=== PATIENT | female | born 1935 | race Caucasian/White ===

== ENCOUNTER 2017-05-09 18:15 | Observation (INO) | payer MEDICARE ==
[~2017-05-09] VITALS: Ht 162.6 cm; Wt 83.3 kg
[~2017-05-09 18:15] MED LIST: AMLO10TA3 PO; ASPI-973 PO; ATRV10T PO; CRAN500T PO; CYAN10008 PO; DOCU-41 PO; FLC50T PO; FLUT9.9S NS; HYDR-4003 PO; LEVO112T4 PO; MAGN400T4 PO; MELA1TAB11 PO; METO25TA6 PO; MULT1CAP33 PO; OMEG1CAP25 PO; RANI150C4 PO; SENN8.6C6 PO
[2017-05-09 18:19] VITALS: BP 147/79; PULSE 90; RESP 18; O2SAT 98
--- NOTE | 2017-05-09 19:01 | ED.REPORT ---
HPI-Chest Pain 40 and Over Date of Service May 09, 2017 ED Provider: Kendall Delacruz DO An 82 year old female with a history of atrial fibrillation, hypertension, hypothyroidism, pneumonia and slight aortic aneurysm presents to the ED complaining of chest pain. The pt has been experiencing chest pain intermittently for two days, which she describes as "5/10 pressure" radiating to her neck and left arm. This is accompanied by shortness of breath, though the pt denies nausea, vomiting, diaphoresis or lower extremity edema. These symptoms are exacerbated by stress and relieved by rest. The pt was sitting down today when she experienced an episode of worsening palpitations, near syncope, confusion and shortness of breath. She took one 325 mg aspirin at 18: 00 with no relief of her symptoms. The pt had an echocardiogram two weeks ago but has not yet received the results. Her last stress test was in 10/2016. She also reports similar symptoms 1.5 years ago that resulted in a stress test. Nursing Notes Stated Complaint: CHEST PAIN Chief Complaint: Chest Pain Nursing Notes Reviewed: Yes Allergies: Coded Allergies: dicyclomine (Verified Allergy, Severe, 11/02/15) meperidine HCl (Verified Allergy, Severe, N&V, 11/02/15) trazodone (Verified Allergy, Severe, 11/02/15) benazepril (Verified Allergy, Unknown, 11/02/15) gabapentin (Verified Allergy, Unknown, 11/02/15) VAUGHN Inhibitors (Verified Adverse Reaction, Severe, COUGH, 11/02/15) sumatriptan (Verified Adverse Reaction, Severe, NAUSEA,PALPITATIONS, ) Uncoded Allergies: MISC CENTRAL NERVOUS SYSTEM DRUGS (Allergy, Unknown, 09/14/04) Scheduled Amlodipine (Amlodipine) 10 Mg Tablet 10 MG PO DAILY Aspirin (Aspirin) 325 Mg Tablet 325 MG PO DAILY Atorvastatin (Lipitor) 10 Mg Tab 10 MG PO HS Cranberry Fruit (Cranberry) 500 Mg Tab.chew 500 MG PO BID Docusate Sodium (Colace) 100 Mg Capsule 200 MG PO DAILY Flecainide Acetate (Flecainide Acetate) 50 Mg Tablet 50 MG PO BID Levothyroxine (Levothyroxine) 112 Mcg Tablet 112 MCG PO DAILY Melatonin/Pyridoxine HCl (B6) (Melatonin 3 mg Tablet) 1 Each Tablet 1 EACH PO HS Metoprolol Tartrate (Metoprolol Tartrate) 25 Mg Tablet 12.5 MG PO BID Multivitamin (Multivitamins) 1 Each Capsule 1 EACH PO DAILY [place]-3 Fatty Acids/Fish Oil ([place] 3 Fish Oil Softgel) 1 Each Capsule.dr 1 EACH PO DAILY Sennosides (Senna) 8.6 Mg Tablet 17.2 MG PO HS Scheduled PRN Fluticasone Propionate (Flonase Allergy Relief) 50 Mcg/Actuation [place].susp 1 SPRAYS NS BID PRN PRN allergies Hydrocodone-Acetaminophen 5-325 mg (Hydrocodone-Acetaminophen 5-325 mg) 1 Each Tablet 0.5-1 TABLET PO TID PRN PRN For Pain Ranitidine (Ranitidine) 150 Mg Capsule 150 MG PO DAILY PRN PRN heartburn General Time Seen by MD: 19:00 Chief Complaint Chest pain Hx Obtained From: Patient Arrived By: Walk-in Sudden in Onset?: No Onset Occurred: 2 days ago Symptom Duration: Intermittent Recent Healthcare: No recent hospitalization, Recent doctor visit Similar Sx Previous: Yes Past Medical History Past Medical History Abnormal stress test results 10/14/1010/2015 stress test Slight aortic aneurysm Breast cancer Hypertension Hypothyroid Restless leg Pneumonia Hiatal hernia Heartburn Arthritis Reports: Atrial fibrillation Past Surgical History Colonoscopy 12/05/10 Left mastectomy Reports: Cholecystectomy, Hysterectomy Smoking History Never Smoker Social History Alcohol Use: Denies alcohol use Ambulatory Status Independent Review of Systems Review of Systems Note: near syncope denies lower extremity edema Respiratory: Reports: Shortness of breath, Denies: Non-productive cough Cardiovascular: Reports: Chest pain, Palpitations GI: Denies: Abdominal pain, Diarrhea, Nausea, Vomiting Musculoskeletal: Reports: Extremity pain, Neck pain, Denies: Back pain Skin: Denies Diaphoresis, Denies Rash Neurologic: Reports: Confusion Complete sys rev & neg: except as marked. Physical Exam Initial Vital Signs Vital Signs (First) Date Time Temp Pulse Resp B/P Pulse Ox O2 Delivery O2 Flow Rate FiO2 05/09/17 18:19 37.1 90 18 147/79 98 Room Air Initial VS: Reviewed General/Constitutional: Awake, Alert Respiratory / Chest: Atraumatic, Breath sounds NL, Breath sounds = bilat, No respiratory distress Cardiovascular: Heart rate NL, Regular rhythm, Heart sounds NL Abdomen: Atraumatic, Soft, Non-tender Neck: Atraumatic, Supple, Full range of motion Back: Atraumatic, Full range of motion Lower Extremity / Pelvis / MS: Atraumatic, Full range of motion Skin: Atraumatic, Color NL, No rash, Warm, Dry Neurologic: Oriented X3, Speech NL, No motor deficits, No sensory deficits Psychiatric: Affect NL, Mood NL Head / Eyes: Atraumatic, Normocephalic, PERRL, EOMI ENT: Atraumatic, Airway patent, Mucous membranes moist Upper Extremity / MS: Atraumatic, Full range of motion Interpretation & Diagnostics Lab Results Interpretation Result Diagram: 05/09/17 19005/09/17 190 Test 05/09/17 19:01 White Blood Count 5.2th/mm3 (3.8-10.1) Red Blood Count 4.51mil/mm3 (3.90-5.20) Hemoglobin 13.6g/dL (12.0-15.6) Hematocrit 40.0% (35.0-46.0) Mean Corpuscular Volume 88.7fL (81-100) Mean Corpuscular Hemoglobin 30.2pg (27.0-35.0) Mean Corpuscular Hemoglobin Concent 34.0% (32.0-37.0) Red Cell Distribution Width 13.1% (12.3-15.4) Platelet Count 219bil/L (150-400) Neutrophils (%) (Auto) 68.5% (40-74) Lymphocytes (%) (Auto) 22.5% (14-46) Monocytes (%) (Auto) 6.7% (4-12) Eosinophils (%) (Auto) 1.7% (0-5) Basophils (%) (Auto) 0.4% (0-3) D-Dimer < 0.50mg/L FEU (<0.50) Sodium Level 138mEq/L (134-144) Potassium Level 3.7mEq/L (3.5-5.2) Chloride Level 100mEq/L (97-108) Carbon Dioxide Level 22mmol/L (18-29) Blood Urea Nitrogen 18mg/dL (8-27) Creatinine 0.78mg/dL (0.57-1.00) Estimat Glomerular Filtration Rate 102mL/min (>59) Glucose Level 172mg/dL (60-99) Calcium Level 9.4mg/dL (8.5-10.1) Magnesium Level 2.3mg/dL (1.6-2.6) Total Bilirubin 0.4mg/dL (0.0-1.2) Aspartate Amino Transf (AST/SGOT) 19U/L (0-50) Alanine Aminotransferase (ALT/SGPT) 18U/L (0-32) Alkaline Phosphatase 79U/L (25-165) Total Protein 6.8g/dL (6.4-8.4) Albumin 4.2g/dL (3.4-5.0) Hold [place] Top Tube Received (Received) Pulse Oximetry Interpretation Pulse Oximetry Interpretation: 98% on room air Pulse Oximetry: Pulse Ox normal ECG Interpretation ECG Interpretation: normal sinus rhythm with a rate of 69 supraventricular bigemony LVH with IVCD and secondary repolarization abnormality Time: 19:40 Interpreted by: ED physician X-Ray Chest Interpretation Chest Xray Interpretation: IMPRESSION: Increased bibasilar opacities compatible with atelectasis versus pneumonia. Please correlate with clinical and laboratory data. Dictated by: Carina Mi MD, PhD on 05/09/2017 at 19:54 Approved by: Carina Mi MD, PhD on 05/09/2017 at 19:56 Interpretation / Wet Read by: Interpret - Radiologist Re-Eval/Medical Decision Med Decision/Clinical Course 82-year-old female multiple cardiac risk factors presents with atypical chest pain that certainly could represent acute coronary syndrome. Pain seemed to improve with nitrates. Negative d-dimer. We will admit her for troponin and possible stress test. She does have a history of a thoracic aortic aneurysm however her symptoms do not seem to be consistent with dissection or aneurysmal rupture. She scheduled have a CT of her chest tomorrow either way. Source of Hx: Old records Time of Eval: 19:52 Patient Status: Condition improved Re-Evaluation/Progress Note: Pt rechecked, who is resting comfortably. The diagnosis and plan for admission are discussed. The pt understands and agrees with the plan. All questions are addressed at this time. Consultation : Referral / Consult Name: Jeff Judge MD Consulted With: Hospitalist Call Returned at: 20:25 Wardrobe Manager: Agrees with eval, Agrees with plan, Accepts admit Note: Spoke with Dr. Judge, hospitalist, regarding pt's case. Dr. Judge agrees with the evaluation and agrees to admit the pt. Counseled Regarding: Diagnosis, Lab results, Need for admission Discharge & Departure Primary Impression: Chest pain Chest pain type: unspecified Qualified Code: R07.9 - Chest pain, unspecified Additional Impression: Near syncope Disposition: ADMITTED TO HOSPITAL Discharge Condition All VS Reviewed: Yes Condition: Stable Referrals: Mil Hendrix MD (PCP) Scribe Attestation Portions of this note were transcribed by Cedric Gomez. I, Dr. Delacruz personally performed the history, physical exam and medical decision-making; I reviewed and confirmed the accuracy of the information in the transcribed note. copies to: Mil Hendrix MD, Todd P DO May 09, 2017 19:01 CEDRIC GOMEZ May 09, 2017 19:27 CEDRIC GOMEZ May 09, 2017 19:27
[2017-05-09 19:14] LABS: BASOPHILS % (AUTO) 0.4 % (0-3); EOSINOPHILS % (AUTO) 1.7 % (0-5); MONOCYTES % (AUTO) 6.7 % (4-12); Mean Corpuscular Hemoglobin 30.2 pg (27.0-35.0); Mean Corpuscular Volume 88.7 fL (81-100); NEUTROPHILS % (AUTO) 68.5 % (40-74); Platelet Count 219 bil/L (150-400)
[2017-05-09 19:36] LABS: TROPONIN T < 0.010 ug/L (0.0-0.011)
[2017-05-09] MEDS ORDERED: Nitroglycerin 2% 1 Gm Ointment TOPICAL ONE (19:40)
[2017-05-09 19:42] VITALS: BP 132/49; PULSE 73; RESP 16; O2SAT 99
[2017-05-09 19:43] LABS: Magnesium 2.3 mg/dL (1.6-2.6)
--- NOTE | 2017-05-09 19:57 | DRSVH ---
PROCEDURE: X-RAY CHEST ONE VIEW, PORTABLE ([id number]) INDICATIONS: chest pain TECHNIQUE: One view of the chest was acquired. COMPARISON: [facility], CR, XR CHEST 1VW (PORTABLE), 11/02/2015, 16:16. FINDINGS: Surgical changes and devices: Status post left mastectomy and left axillary node dissection. Lungs and pleura: No pleural effusions or pneumothorax. Increased opacification noted in the lung ba ses bilaterally compatible atelectasis versus pneumonia. Mediastinum: Mediastinal contours appear normal. Heart size is normal. Bones and chest wall: No suspicious bony lesions. Overlying soft tissues appear unremarkable. IMPRESSION: Increased bibasilar opacities compatible with atelectasis versus pneumonia. Please jae elate with clinical and laboratory data. Dictated by: Carina Mi MD, PhD on 05/09/2017 at 19:54 Approved by: Carina Mi MD, PhD on 05/09/2017 at 19:56
[2017-05-09 20:19] VITALS: BP 139/53; PULSE 72; RESP 20; O2SAT 96
[2017-05-09] MEDS ORDERED: ASPI325T32 PO (20:44)
[2017-05-09] MEDS ORDERED: MELA1TAB28 PO (20:47)
[2017-05-09] MEDS ORDERED: SENN-133 PO (20:47)
[2017-05-09] MEDS ORDERED: Ondansetron 2 mg/mL 2 mL Inj IVPUSH PRN (20:55)
[2017-05-09] MEDS ORDERED: Polyethylene Glycol (PEG) 17 Gm Powder PO PRN (20:55)
[2017-05-09] MEDS ORDERED: Alum-Mag Hydrox-Simeth 30 mL Suspension PO PRN (20:55)
--- NOTE | 2017-05-09 21:19 | NUR ---
Attempted to call back OSWALDO GRANGER for report. Addendum: 05/09/17 at 2128 by ALTA MINAYA RN Report received from Carmelita Guillen in ED
--- NOTE | 2017-05-09 21:20 | PCM.HPMED ---
Subjective Date of Service May 09, 2017 Primary Provider: Admitting Physician: Primary Care Physician: Mil Hendrix MD Attending Physician: Admit Status: From the Emergency Department Chief Complaint: Chest pain History of Present Illness: 82-year-old female with a history of A. fib, hypertension, hypothyroidism, aortic aneurysm presented to the emergency department with intermittent chest pain This patient is an 82-year-old female who presented to the emergency department with intermittent chest pain for 2-4 days. She states that the pain is a tightness that radiates down her left arm making her left arm feel numb. It occurs with stress of which she is under a great amount at this time. She states that she came in today after bending over and feeling as if she were going to black out after which she developed palpitations. She called her son and symptoms improved. These intermittent chest pains occur with stress but not exertion, and resolve with rest. Her is currently hospitalized in this hospital with plans for discharge as soon as tomorrow. Patient feels as if she is unable to care for him. This patient has had multiple stress tests and a cardiac catheterization, but I am unable to find the results of any of these recent tests first hand. She states that her most recent stress test was in October 2015 for similar symptoms and had a an echo 2 weeks ago but have yet to receive the results. She did a pharmaceutical stress test as she was unable to perform a treadmill stress test and states that she will never do another pharmaceutical stress test again as she felt like she was dying. Patient's adult son shared that the patient has had increased frustration, stress, lack of sleep, and likely suffers from intermittent depression throughout her life. Patient denies diaphoresis, nausea, vomiting, weakness, dizziness, change in vision, change in hearing. Extracted from Dr Ramana Shin's hospital discharge summary from 11/03/2015 NM Lexiscan stress test on 11/03/2015 with no evidence of ischemia. Brief History and Physical: According to Dr. Zurdo Chavez's H&P, "80 year old female with Paroxysmal A fibrillation,Coronary disease and hypertension with who presents to the ED complaining of chest pain beginning one week ago in her upper chest and radiating to her left shoulder. Patient reports the pain started right since her Metoprolol dose was decreased and progressively getting worst. She reported chest heaviness in the morning when first gets up and today went to town and was having again mid day. She describes as pressure and located anteriorly, retrosternal slightly to the left side. Radiation to the left shoulder. Rates pain as 5-6/10 at worst and currently 3/10. Pt reports the pain decreased at rest and is slightly exacerbated by movement and in the mornings. The patient denies shortness of breath, diaphoresis, nausea, vomiting, fever, abdominal tenderness, leg swelling. Patient reported similar symptoms on 04/17/2013 Patient has been having fatigue and weakness with bradycardia noted which prompted Dr Welsh to half her Metoprolol dose. She is compliant with medications and diet. Last echo 11/2014 wnl ; EF 60%; mild LVH. mild-moderate LAE (indexed volume 36 ml/m2). She refuses Coumadin because her brother had intracranial hemorrhage while on Warfarin. In the ED, vitals showed hypertension (154/69). Labs showed negative troponin. EKG showed no ischemic changes. Dr Gibson consulted Dr Welsh who recommended a stress test and echo in the morning. Currently chest pain 1/10 with no other symptoms" Hospital Course: Mrs. Celina Caro is a 80 year old woman with PAF and HTN, who was admitted on 11/03/2015 for chest pain. She was started on heparin drip for unstable angina with chest pain. However, she was ruled out for ACS with negative troponin. I assumed her care on 11/03/2015. The patient underwent NM Lexiscan which showed no evidence of ischemia. For her paroxysmal atrial fibrillation, she was continued on flecainide 50 mg bid for rhythm control. Her [id number] score is 4 but the patient refuses Coumadin and takes aspirin daily. She was resumed on atorvastatin. For her thoracic aortic aneurysm without rupture measuring 4.2 cm noted in 03/2014 CT. She was instructed to monitor in the outpatient setting. I discharged her home in stable condition. Review of Systems: Complete ROS was performed and pertinent positives and negatives included in the history of present illness. All other findings were negative. Allergies Coded Allergies: dicyclomine (Verified Allergy, Severe, 11/02/15) meperidine HCl (Verified Allergy, Severe, N&V, 11/02/15) trazodone (Verified Allergy, Severe, 11/02/15) benazepril (Verified Allergy, Unknown, 11/02/15) gabapentin (Verified Allergy, Unknown, 11/02/15) VAUGHN Inhibitors (Verified Adverse Reaction, Severe, COUGH, 11/02/15) sumatriptan (Verified Adverse Reaction, Severe, NAUSEA,PALPITATIONS, ) Uncoded Allergies: MISC CENTRAL NERVOUS SYSTEM DRUGS (Allergy, Unknown, 09/14/04) Home Medications Amlodipine (Amlodipine) 10 Mg Tablet 10 MG PO DAILY Aspirin (Aspirin) 81 Mg Tablet 81 MG PO BID Atorvastatin (Lipitor) 10 Mg Tab 10 MG PO HS Cranberry Fruit (Cranberry) 500 Mg Tab.chew 500 MG PO TID Cyanocobalamin (Vitamin B-12) (Vitamin B-12) 1,000 Mcg Tablet 1,000 MCG PO DAILY Flecainide Acetate (Flecainide Acetate) 50 Mg Tablet 50 MG PO BID Levothyroxine (Levothyroxine) 112 Mcg Tablet 112 MCG PO DAILY Magnesium Oxide (Magnesium Oxide) 400 Mg Tablet 400 MG PO DAILY Melatonin/Pyridoxine (Melatonin 3 mg Tablet) 1 Each Tablet 1 EACH PO HS Metoprolol Tartrate (Metoprolol Tartrate) 25 Mg Tablet 12.5 MG PO BID Multivitamin (Multivitamins) 1 Each Capsule 1 EACH PO DAILY [place]-3 Fatty Acids/Fish Oil ([place] 3 Fish Oil Softgel) 1 Each Capsule.dr 1 EACH PO DAILY Ranitidine (Ranitidine) 150 Mg Capsule 150 MG PO BID Sennosides (Senna) 8.6 Mg Capsule 8.6 MG PO HS Docusate Sodium (Colace) 100 Mg Capsule 100 MG PO DAILY PRN PRN For Constipation Fluticasone Propionate (Flonase Allergy Relief) 50 Mcg/Actuation [place].susp 1 SPRAYS NS BID PRN PRN allergies Hydrocodone-Acetaminophen 5-325 mg (Hydrocodone-Acetaminophen 5-325 mg) 1 Each Tablet 0.5-1 TABLET PO ONCE TO TID PRN PRN For Pain PMH 1. Abnormal stress test 10/14/2010 2. October 2015 stress test 3. Aortic aneurysm 4. Breast cancer 5. Hypertension 6. Hypothyroidism 7. Restless leg syndrome 8. Hiatal hernia 9. Heartburn 10. Arthritis 11. Atrial fibrillation Surgical History 1. Left mastectomy 2. Cholecystectomy 3. Hysterectomy Family History 1. Mother passed of stroke at 83 Social History Hx Alcohol Use: No Hx Substance Use: No Hx Tobacco Use: No Smoking Status: Never Smoker Living Arrangement: with Family () Exam Vital Signs Vital Sign - Last Date Time Temp Pulse Resp B/P Pulse Ox O2 Delivery O2 Flow Rate FiO2 05/09/17 20:19 72 20 139/53 96 Room Air 05/09/17 18:19 37.1 Exam General: Nondistressed, well-developed well-nourished female HEENT: NC/AT, PERRLA, EOM intact. Nontender sinuses, no nasal discharge. Poor dentation, no erythema, nor exudate present in oropharynx. No thyromegaly appreciated. CV: Irregular rate, no murmurs, gallops, or rubs appreciated RESP: Clear to auscultation bilaterally, no wheezes or rhonchi appreciated ABD: Bowel sounds normal, nondistended, nontender to palpation. EXT: No joint swelling, 1+ nonpitting edema bilateral lower extremity LYMPH: No cervical or axillary adenopathy appreciated NEURO: Symmetric face, cranial nerves grossly intact, strength intact bilaterally upper and lower extremities, sensation to light touch intact bilaterally upper and lower extremities. PSYCH: Oriented 3. Linear and appropriate conversation. Skin: No rashes or ecchymosis appreciated Lab and Diagnostics Result Diagram: 05/09/17190005/09/171900 X-Rays, CTs and MRIs PROCEDURE: X-RAY CHEST ONE VIEW, PORTABLE ([id number]) IMPRESSION: Increased bibasilar opacities compatible with atelectasis versus pneumonia. Please correlate with clinical and laboratory data. 12-lead ECG ECG Interpretation: normal sinus rhythm with a rate of 69 supraventricular bigemony LVH with IVCD and secondary repolarization abnormality Time: 19:40 Interpreted by: ED physician Assessment & Plan Is an 82-year-old female that presented with intermittent chest pain brought on by stress. She has a history of cardiac catheterization in 2002 at which time is normal, multiple stress tests most recent in October 2015, A. fib on aspirin 1. Intermittent chest pain, present upon admission and ongoing - Patient has multiple risk factors for coronary artery disease including hypertension, hyperlipidemia, age -Low suspicion for PE as d-dimer is negative -Negative troponin 2 -Patient has currently refused to perform a pharmaceutical stress test but is willing to attempt a treadmill stress test -Consider anxiety induced chest pain in the setting of high home stress and concern from patient's son 2. Atrial fibrillation, present on admission and ongoing -Patient is on flecainide, metoprolol, and aspirin for management -Hold metoprolol for stress test tomorrow -Continue flecainide and aspirin. 3. Aortic aneurysm, present on admission and ongoing -This is being monitored outpatient -Little suspicion of this as cause of pain as pain is intermittent and vital signs are stable -Normal mediastinum on chest x-ray 4. Hypothyroidism, present on admission and ongoing -Patient is on levothyroxine outpatient -TSH normal at 2.350 5. Abnormal chest x-ray, present upon admission and ongoing -Increased bibasilar opacities compatible with atelectasis versus pneumonia found on chest x-ray -No leukocytosis, pro-calcitonin negative at 0.03, unlikely pneumonia -Patient denies symptoms -Consider undiagnosed COPD, follow-up outpatient Patient is being admitted as observation status. I expect her to spend less than 2 midnights in the hospital Pain Evaluation: Adequate Pain Control GI Prophylaxis: Not indicated VTE Prophylaxis: SCDs Resuscitation Status: Limited Interventions (CPR without intubation) Attending Statement The patient was seen and examined together with Dr. Bowen on 05/09 and I agree with the history, exam and plan as outlined in the note above. Ivett Bowen DO May 09, 2017 21:02 Jeff Judge MD May 10, 2017 05:26
--- NOTE | 2017-05-09 22:02 | NUR ---
ADMIT Pt on floor at approx. 2155. Ambulated to bed with no help, no c/o chest pain. Family at bedside.
[2017-05-09] MEDS ORDERED: HYDROcodone-APAP 5-325 mg Tablet PO PRN (23:05)
[2017-05-09 23:08] LABS: APPEARANCE,URINE HAZY (CLEAR,HAZY); COLOR,URINE STRAW (YELLOW); OCCULT BLOOD,URINE SMALL (NEGATIVE); UROBILINOGEN,URINE NORMAL (NORMAL)
[2017-05-10] VITALS (7 sets, daily range): BP systolic 99–123; BP diastolic 56–68; PULSE 56–84; RESP 18; O2SAT 97–99
--- NOTE | 2017-05-10 01:41 | NUR ---
PLAN OF CARE Went over plan of care for the night with pt including times for medications, labs, and assessments. Pt understands and is compliant. Pt informed of echo stress ett for the following day. RN clarified with pt test would not be pharmacologically induced because "the last one I had almost killed me." Pt aware NPO at midnight, no beta blockers, and no caffeine. Med rec done per admit nurse. Pt brought all medications, reported she took most of her HS medications in ED. Pt concerned about pain medications availability for her throughout the night. Medications were ordered. Son Per took pt's medications home. Hourly rounding. Addendum: 05/10/17 at 3218 by ALTA MINAYA RN Nitro patch off at 0300
[2017-05-10 01:50] LABS: TROPONIN T 0.01 ug/L (0.0-0.011)
--- NOTE | 2017-05-10 10:45 | DRSVH ---
[facility] [address] [place] [address] Echocardiogram Report Name: ALBERT VEE MStudy Date: Height: 64 in Hospital Exam Location: [facility] Weight: 184 lb Gender: Female BSA: 1.9 m2 : 1935 Age: 82 yrs BP: 119/56 mmHg Reason For Study: Syncope Ordering Physician: HOSPITALIST [facility] Performed By: Adriana Castro Referring Physician: Alcides Mathis Interpretation Summary The left ventricle is normal in size, wall thickness, and systolic function without any focal wall motion abnormalities. The ejection fraction is estimated to be 60-65%. There has been no significant change since the previous study. Assessment of diastolic parameters indicates a relaxation abnormality of the left ventricle, consistent with normal filling pressures. The right ventricle is normal in size and function. The left atrium is borderline dilated. The right atrium is mildly dilated. The atrial septum is aneurysmal. There is no Doppler evidence for an interatrial shunt. There is mild mitral regurgitation. This is unchanged compared to the previous study. There is mild aortic regurgitation. This is unchanged compared to the previous study. There is no other significant valvular heart disease. The ascending aorta is mild-moderately enlarged. There has been no significant change since the previous study. The aortic arch is mild- moderately enlarged. Procedure: A two-dimensional transthoracic echocardiogram with color flow and Doppler was performed. The study quality was technically adequate. Comparison is made with the echocardiogram of 11/22/2015. The patient had frequent PACs during the exam. The heart rate ranged between 55-62 bpm during the study. Left Ventricle: The left ventricle is normal in size, wall thickness, and systolic function without any focal wall motion abnormalities. The ejection fraction is estimated to be 60-65%. There has been no significant change since the previous study. Assessment of diastolic parameters indicates a relaxation abnormality of the left ventricle, consistent with normal filling pressures. Right Ventricle: The right ventricle is normal in size and function. Atria: The left atrium is borderline dilated. The right atrium is mildly dilated. The atrial septum is aneurysmal. There is no Doppler evidence for an interatrial shunt. Mitral Valve: The mitral valve is normal. There is mild mitral regurgitation. This is unchanged compared to the previous study. Aortic Valve: The aortic valve is trileaflet. The aortic valve opens well. There is mild aortic regurgitation. This is unchanged compared to the previous study. Tricuspid Valve: The tricuspid valve is normal. There is a trace or physiologic amount of tricuspid regurgitation. Pulmonic Valve: The pulmonic valve is normal in structure and function. There is a trace or physiologic amount of pulmonic regurgitation. There is no other significant valvular heart disease. Great Vessels: The aortic root is normal size. The ascending aorta is mild- moderately enlarged. There has been no significant change since the previous study. The aortic arch is mild-moderately enlarged. The pulmonary artery is normal size. The IVC is of normal diameter and collapses greater than 50% with a sniff. This suggests a low right atrial pressure of 3 mm Hg. Pericardium/ Pleura There is no pericardial effusion. There is no pleural effusion. MMode/2D Measurements & Calculations LVIDd: 4.4 cm LVIDs: 3.6 cm LA A2 area: 18.4 cm FS: 18.1 % LA A4 area: 22.5 cm EPSS: 0.72 cm LA length (vol): 5.4 cm IVSd: 1.0 cm LA vol: 65.7 ml LVPWd: 0.92 cm LA vol index: 34.8 ml/m IVC diam: 2.0 cm RA long axis: 5.8 cm LVOT diam: 2.3 cm RA area: 21.6 cm AoV Openin.9 cm RA vol: 68.6 ml Ao root diam: 3.7 cm RA : 36.3 ml/m2 asc Aorta Diam: 4.2 cm Ao Arch Diam (Prox Trans): 3.9 cm LV alvarado. diameter/BSA (cm/m^2): 2.4 LV sys. diameter/BSA (cm/m^2): 1.9 RVD1 (basal): 3.5 cm TAPSE: 2.2 cm Doppler Measurements & Calculations Ao V2 max: 145.5 cm/sec MV E max estuardo: 59.4 cm/sec Ao max P.5 mmHg MV A max estuardo: 77.8 cm/sec Ao mean P.8 mmHg MV P1/2t: 74.0 msec LVOT Max Estuardo: 106.9 cm/sec MARI(I,D): 2.9 cm sev ratio: 0.73 AI P1/2t: 569.8 msec AI dec slope: 240.7 cm/sec2 MV E/A: 0.76 TR max estuardo: 203.5 cm/sec Med Peak E' Estuardo: 7.3 cm/sec TR max P.6 mmHg E/E' med: 8.2 PA V2 max: 80.8 cm/sec Lat Peak E' Estuardo: 12.4 cm/sec PA mean P.4 mmHg E/E' lat: 4.8 E/e' average: 6.5 MV dec time: 0.25 sec MV P1/2t max estuardo: 59.8 cm/sec MVA(P1/2t): 3.0 cm2 Ao V2 mean: 103.7 cm/sec LV V1 max P.6 mmHg Ao V2 VTI: 36.9 cm LV V1 VTI: 27.0 cm MARI(V,D): 3.0 cm2 PA V2 mean: 55.8 cm/sec MARI indexed to BSA (cm^2/m^2): 1.6 Reading Physician:AM
--- NOTE | 2017-05-10 11:22 | NUR ---
Case Management: Medicare YESSICA document presented with explanation - signed original to chart, copy to patient. Nathalie Mars RN Addendum: 05/10/17 at 1123 by HETAL MARS CM YESSICA signed at 1035.
--- NOTE | 2017-05-10 12:22 | PCM.DIMED ---
Discharge Instructions Date of Service May 10, 2017 Dates of Hospitalization May 09, 2017 at 21:14 Discharge Diagnosis Discharge Diagnosis acute dx near-syncopal episode, likely dehydration chest pain, likely non-anginal chronic dx Atrial fibrillation Aortic aneurysm Hypothyroidism Diet Discharge Diet: Heart Healthy Activity Discharge Activity: No restrictions Call your provider Call your provider for: Shortness of breath, Chest pain Patient Instructions Patient Instructions You were hospitalized with chest pain, near-pass out, you underwent echocardiogram, serial blood test and EKG. all of which didn't suggest that you have active heart attack. It's possible that you were dehydrated with poor oral intake, caused this episode. Your aneurysm also looked stable on echocardiogram. Please note that you need to follow up with on as scheduled for follow up Please also follow up with primary doctor in 1-2weeks if you notice more severe pain with dizziness, RAMIREZ, blurry vision, nausea, sweating. Please return to hospital. Follow-up Provider: Mil Hendrix MD Follow-up with PCP in: 1 week Azucena De MD May 10, 2017 12:19
--- NOTE | 2017-05-10 13:06 | PCM.DC.MED ---
Discharge Summary Date of Service May 10, 2017 Dates of Hospitalization Date of Hospital Admission May 09, 2017 at 21:14 Date of Discharge: May 10, 2017 Providers: Admitting Physician: Jeff Judge MD Primary Care Physician: Mil Hendrix MD Attending Physician: Azucena De MD Diagnosis at Time of Discharge Diagnosis at Time of Discharge acute dx near-syncopal episode, likely dehydration chest pain, likely non-anginal chronic dx Atrial fibrillation Aortic aneurysm Hypothyroidism Procedures XRay, CTs & MRIs PROCEDURE: X-RAY CHEST ONE VIEW, PORTABLE ([id number]) IMPRESSION: Increased bibasilar opacities compatible with atelectasis versus pneumonia. Please correlate with clinical and laboratory data. ECG 12 Lead ECG Interpretation: normal sinus rhythm with a rate of 69 supraventricular bigemony LVH with IVCD and secondary repolarization abnormality Time: 19:40 Interpreted by: ED physician Brief History HPI obtained by on 05/09 82-year-old female with a history of A. fib, hypertension, hypothyroidism, aortic aneurysm presented to the emergency department with intermittent chest pain This patient is an 82-year-old female who presented to the emergency department with intermittent chest pain for 2-4 days. She states that the pain is a tightness that radiates down her left arm making her left arm feel numb. It occurs with stress of which she is under a great amount at this time. She states that she came in today after bending over and feeling as if she were going to black out after which she developed palpitations. She called her son and symptoms improved. These intermittent chest pains occur with stress but not exertion, and resolve with rest. Her is currently hospitalized in this hospital with plans for discharge as soon as tomorrow. Patient feels as if she is unable to care for him. This patient has had multiple stress tests and a cardiac catheterization, but I am unable to find the results of any of these recent tests first hand. She states that her most recent stress test was in October 2015 for similar symptoms and had a an echo 2 weeks ago but have yet to receive the results. She did a pharmaceutical stress test as she was unable to perform a treadmill stress test and states that she will never do another pharmaceutical stress test again as she felt like she was dying. Patient's adult son shared that the patient has had increased frustration, stress, lack of sleep, and likely suffers from intermittent depression throughout her life. Patient denies diaphoresis, nausea, vomiting, weakness, dizziness, change in vision, change in hearing. Extracted from Dr Ramana Shin's hospital discharge summary from 11/03/2015 NM Lexiscan stress test on 11/03/2015 with no evidence of ischemia. Brief History and Physical: According to Dr. Zurdo Chavez's H&P, "80 year old female with Paroxysmal A fibrillation,Coronary disease and hypertension with who presents to the ED complaining of chest pain beginning one week ago in her upper chest and radiating to her left shoulder. Patient reports the pain started right since her Metoprolol dose was decreased and progressively getting worst. She reported chest heaviness in the morning when first gets up and today went to town and was having again mid day. She describes as pressure and located anteriorly, retrosternal slightly to the left side. Radiation to the left shoulder. Rates pain as 5-6/10 at worst and currently 3/10. Pt reports the pain decreased at rest and is slightly exacerbated by movement and in the mornings. The patient denies shortness of breath, diaphoresis, nausea, vomiting, fever, abdominal tenderness, leg swelling. Patient reported similar symptoms on 04/17/2013 Patient has been having fatigue and weakness with bradycardia noted which prompted Dr Welsh to half her Metoprolol dose. She is compliant with medications and diet. Last echo 11/2014 wnl ; EF 60%; mild LVH. mild-moderate LAE (indexed volume 36 ml/m2). She refuses Coumadin because her brother had intracranial hemorrhage while on Warfarin. In the ED, vitals showed hypertension (154/69). Labs showed negative troponin. EKG showed no ischemic changes. Dr Gibson consulted Dr Welsh who recommended a stress test and echo in the morning. Currently chest pain 1/10 with no other symptoms" Hospital Course: Mrs. Celina Caro is a 80 year old woman with PAF and HTN, who was admitted on 11/03/2015 for chest pain. She was started on heparin drip for unstable angina with chest pain. However, she was ruled out for ACS with negative troponin. I assumed her care on 11/03/2015. The patient underwent NM Lexiscan which showed no evidence of ischemia. For her paroxysmal atrial fibrillation, she was continued on flecainide 50 mg bid for rhythm control. Her [id number] score is 4 but the patient refuses Coumadin and takes aspirin daily. She was resumed on atorvastatin. For her thoracic aortic aneurysm without rupture measuring 4.2 cm noted in 03/2014 CT. She was instructed to monitor in the outpatient setting. I discharged her home in stable condition. Hospital Course Given known CAD, pt was admitted to rule out ACS. EKG didn't show ischemic chg. serial tropx2 were negative. Repeat TTE obtained as it was scheduled in outpt anyway, which showed no focal WMA, stable size of aneurysm. Pt remained asymptomatic, ambulate without lightheadedness. It was possible that givn her recent stress her being in the hospital, likely caused anxiety, poor oral intake, dehydration, possible near-syncopal episode. Given patient's stable condition, follow up appointment with on already scheduled, pt deemed safe for d/c home. Is an 82-year-old female that presented with intermittent chest pain brought on by stress. She has a history of cardiac catheterization in 2002 at which time is normal, multiple stress tests most recent in October 2015, A. fib on aspirin 1. Intermittent chest pain, present upon admission and ongoing - Patient has multiple risk factors for coronary artery disease including hypertension, hyperlipidemia, age -Low suspicion for PE as d-dimer is negative -Negative troponin 2 -Patient has currently refused to perform a pharmaceutical stress test but is willing to attempt a treadmill stress test -Consider anxiety induced chest pain in the setting of high home stress and concern from patient's son 2. Atrial fibrillation, present on admission and ongoing -Patient is on flecainide, metoprolol, and aspirin for management -Hold metoprolol for stress test tomorrow -Continue flecainide and aspirin. 3. Aortic aneurysm, present on admission and ongoing -This is being monitored outpatient -Little suspicion of this as cause of pain as pain is intermittent and vital signs are stable -Normal mediastinum on chest x-ray 4. Hypothyroidism, present on admission and ongoing -Patient is on levothyroxine outpatient -TSH normal at 2.350 5. Abnormal chest x-ray, present upon admission and ongoing -Increased bibasilar opacities compatible with atelectasis versus pneumonia found on chest x-ray -No leukocytosis, pro-calcitonin negative at 0.03, unlikely pneumonia -Patient denies symptoms -Consider undiagnosed COPD, follow-up outpatient Patient is being admitted as observation status. I expect her to spend less than 2 midnights in the hospital Exam Vital Signs (Last) Date Time Temp Pulse Resp B/P Pulse Ox O2 Delivery O2 Flow Rate FiO2 05/10/17 10:15 84 18 123/68 99 Room Air 05/10/17 05:11 36.6 Exam Patient was examined on the day of discharge Test 05/09/17 19:01 05/09/17 22:43 05/10/17 01:15 White Blood Count 5.2th/mm3 (3.8-10.1) Red Blood Count 4.51mil/mm3 (3.90-5.20) Hemoglobin 13.6g/dL (12.0-15.6) Hematocrit 40.0% (35.0-46.0) Mean Corpuscular Volume 88.7fL (81-100) Mean Corpuscular Hemoglobin 30.2pg (27.0-35.0) Mean Corpuscular Hemoglobin Concent 34.0% (32.0-37.0) Red Cell Distribution Width 13.1% (12.3-15.4) Platelet Count 219bil/L (150-400) Neutrophils (%) (Auto) 68.5% (40-74) Lymphocytes (%) (Auto) 22.5% (14-46) Monocytes (%) (Auto) 6.7% (4-12) Eosinophils (%) (Auto) 1.7% (0-5) Basophils (%) (Auto) 0.4% (0-3) D-Dimer < 0.50mg/L FEU (<0.50) Sodium Level 138mEq/L (134-144) Potassium Level 3.7mEq/L (3.5-5.2) Chloride Level 100mEq/L (97-108) Carbon Dioxide Level 22mmol/L (18-29) Blood Urea Nitrogen 18mg/dL (8-27) Creatinine 0.78mg/dL (0.57-1.00) Estimat Glomerular Filtration Rate 102mL/min (>59) Glucose Level 172mg/dL (60-99) Calcium Level 9.4mg/dL (8.5-10.1) Magnesium Level 2.3mg/dL (1.6-2.6) Total Bilirubin 0.4mg/dL (0.0-1.2) Aspartate Amino Transf (AST/SGOT) 19U/L (0-50) Alanine Aminotransferase (ALT/SGPT) 18U/L (0-32) Alkaline Phosphatase 79U/L (25-165) Total Protein 6.8g/dL (6.4-8.4) Albumin 4.2g/dL (3.4-5.0) Hold Cisneros Top Tube Received (Received) Urine Color Straw (YELLOW) Urine Appearance Hazy (CLEAR,HAZY) Urine pH 7.0 (5.0-8.0) Urine Specific [place] 1.010 (1.003-1.035) Urine Protein Negativemg/dL (NEG,TRACE) Urine Glucose (UA) Negativemg/dL (NEGATIVE) Urine Ketones Negativemg/dL (NEGATIVE) Urine Occult Blood Small (NEGATIVE) Urine Nitrite Negative (NEGATIVE) Urine Bilirubin Negative (NEGATIVE) Urine Urobilinogen Normalmg/dL (NORMAL) Urine Leukocyte Esterase Small (NEGATIVE) Urine RBC 3-10/hpf (0-2) Urine WBC 0-5/hpf (0-5) Urine Epithelial Cells Few/hpf (NONE-MOD) Urine Crystals None seen (NONE SEEN) Urine Bacteria Few/hpf (NONE-FEW) Urine Hyaline Casts None/lpf (NONE) Urine Granular Casts None seen (NONE SEEN) Urine Waxy Casts None seen (NONE SEEN) Urine Red Blood Cell Casts None seen (NONE SEEN) Urine White Blood Cell Casts None seen (NONE SEEN) Urine Mucus None seen (None Seen) Urine Trichomonas None seen (NONE SEEN) Urine Yeast None (NONE SEEN) Urinalysis Comment None Urine Culture Reflexed Indicated Troponin T 0.010ug/L (0.0-0.011) Procalcitonin 0.03ng/mL (0.00-0.08) Thyroid Stimulating Hormone (TSH) 2.350uIU/mL (0.450-4.500) Discharge Medications Discharge Medications Amlodipine (Amlodipine) 10 Mg Tablet 10 MG PO DAILY (Reported) Aspirin (Aspirin) 325 Mg Tablet 325 MG PO DAILY (Reported) Atorvastatin (Lipitor) 10 Mg Tab 10 MG PO HS (Reported) Cranberry Fruit (Cranberry) 500 Mg Tab.chew 500 MG PO BID (Reported) Docusate Sodium (Colace) 100 Mg Capsule 200 MG PO DAILY (Reported) Flecainide Acetate (Flecainide Acetate) 50 Mg Tablet 50 MG PO BID (Reported) Levothyroxine (Levothyroxine) 112 Mcg Tablet 112 MCG PO DAILY (Reported) Melatonin/Pyridoxine HCl (B6) (Melatonin 3 mg Tablet) 1 Each Tablet 1 EACH PO HS (Reported) Metoprolol Tartrate (Metoprolol Tartrate) 25 Mg Tablet 12.5 MG PO BID (Reported ) Multivitamin (Multivitamins) 1 Each Capsule 1 EACH PO DAILY (Reported) [place]-3 Fatty Acids/Fish Oil ([place] 3 Fish Oil Softgel) 1 Each Capsule.dr 1 EACH PO DAILY (Reported) Sennosides (Senna) 8.6 Mg Tablet 17.2 MG PO HS (Reported) As needed Fluticasone Propionate (Flonase Allergy Relief) 50 Mcg/Actuation [place].susp 1 SPRAYS NS BID PRN PRN allergies (Reported) Hydrocodone-Acetaminophen 5-325 mg (Hydrocodone-Acetaminophen 5-325 mg) 1 Each Tablet 0.5-1 TABLET PO TID PRN PRN For Pain (Reported) Ranitidine (Ranitidine) 150 Mg Capsule 150 MG PO DAILY PRN PRN heartburn ( Reported) Followup Plan Disposition: home Discharge Diet: Heart Healthy Discharge Activity: No restrictions Patient Instructions You were hospitalized with chest pain, near-pass out, you underwent echocardiogram, serial blood test and EKG. all of which didn't suggest that you have active heart attack. It's possible that you were dehydrated with poor oral intake, caused this episode. Your aneurysm also looked stable on echocardiogram. Please note that you need to follow up with on as scheduled for follow up Please also follow up with primary doctor in 1-2weeks if you notice more severe pain with dizziness, RAMIREZ, blurry vision, nausea, sweating. Please return to hospital. Follow-up Provider: Mil Hendrix MD Follow-up with PCP in: 1 week Time spent 65min Azucena De MD May 10, 2017 13:06
--- NOTE | 2017-05-10 14:43 | NUR ---
Social Work-initial assessment/readiness for discharge: Data:See initial assessment. Pt is a 82 y/o female who was admitted on 05/09/17 for chest pain per H&P. Pt's insurance is [employer] and PCP is Mil Hendrix MD. EMR reviewed. SW met with pt to discuss discharge planning, SW role explained. Pt resides at home with her where she remains independent with ADLs. Pt drives and does not use any DME. Pt has no HH or SNF history. 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 SW discussed DPOA/ advanced directive, pt has completed this, SW encouraged a copy to be brought in. No concerns noted regarding pt's capacity for self care, per RN and MD. Pt's is going to SNF today, SW updated pt on plan of care with her . Pt has been up independent in his room. Pt's son to provide transport home. No anticipated discharge needs. SW will continue to follow if needs arise. Assessment:pt who is independent at baseline. Plan:Pt to discharge home when medically stable via POV. No anticipated discharge needs. SW will continue to follow if needs arise. SHANTANU Maciel Addendum: 05/10/17 at 1452 by GUMARO SAVAGE Amended: Links added.
--- NOTE | 2017-05-10 17:15 | NUR ---
Social Work-discharge: Data:EMR reviewed. Pt is on day 1 of hospitalization for chest pain per H&P. Pt is medically stable for discharge. Pt has been up independent in her room. Pt's son to provide transport home today. No other discharge needs identified. All updated and agreeable to plan. Assessment:Pt who is independent at baseline. Plan:Pt to discharge home today via POV. No other discharge needs identified. All updated and agreeable to plan. SHANTANU Maciel
--- NOTE | 2017-05-10 17:38 | NUR ---
Education Discussed de-stressing techniques and healthy sleep habits with pt and family per their request. Pt voices relief of knowing her will be in SNF and well cared for, and that she will not be stressed and burdened as much.
== END 2017-05-10 17:23 | disposition home or self-care (01) ==
LOC: SED 18:15 → MPC 21:14
PROVIDERS: ADMIT Hospitalist; ATTEND Internal Medicine
DX: R55 Syncope and collapse (principal); R07.89 Other chest pain; I48.2 Chronic atrial fibrillation; I71.4 Abdominal aortic aneurysm, without rupture; E03.9 Hypothyroidism, unspecified; I10 Essential (primary) hypertension; I25.10 Atherosclerotic heart disease of native coronary artery without angina pectoris; G25.81 Restless legs syndrome; M19.90 Unspecified osteoarthritis, unspecified site; K21.9 Gastro-esophageal reflux disease without esophagitis; K44.9 Diaphragmatic hernia without obstruction or gangrene; Z95.5 Presence of coronary angioplasty implant and graft; Z79.82 Long term (current) use of aspirin
CPT/HCPCS: 36415; 71010; 80053; 81000; 83735; 84145; 84443; 84484; 85025; 85378; 87040; 87086; 87088; 93005; 99285; C8929; G0378